=== PATIENT | female | born 1995 | race Caucasian/White ===

== ENCOUNTER 2020-10-10 18:01 | Emergency (ER) | payer OTHER ==
[~2020-10-10] VITALS: Ht 154.9 cm; Wt 81.4 kg
[2020-10-10 18:19] VITALS: TEMP 97.4
[2020-10-10 19:14] VITALS: BP 122/78; PULSE 84
== END 2020-10-10 19:13 | disposition home or self-care (01) ==
LOC: COL.ER 18:01
DX: S93.402A Sprain of unspecified ligament of left ankle, initial encounter (principal); X50.1XXA Overexertion from prolonged static or awkward postures, initial encounter

== ENCOUNTER 2022-03-18 16:00 | Outpatient (RCR) | payer BC, OTHER ==
[2022-03-13 16:29] VITALS: BP 104/67; PULSE 84; TEMP 99
[2022-03-16 17:19] VITALS: BP 115/67; PULSE 87; TEMP 99.1
[~2022-03-18] VITALS: Ht 154.9 cm; Wt 84.1 kg
[2022-03-18 16:00] VITALS: BP 120/70; PULSE 83; TEMP 98.6
[~2022-03-18 16:00] MED LIST: ONE-A-DAY PREN1 EAC1 PO; PROVERA 10MG10 MG PO; VALTREX 50500 MG/TAB PO
== END 2022-03-18 17:55 ==
LOC: EUO 16:00
DX: D50.9 Iron deficiency anemia, unspecified (principal)
CPT/HCPCS: J1756; J7050

== ENCOUNTER 2022-04-24 10:45 | Observation (INO) | payer BC, OTHER ==
[~2022-04-24] VITALS: Ht 172.7 cm; Wt 78.5 kg
[2022-04-24] VITALS (15 sets, daily range): BP systolic 96–134; BP diastolic 32–68; PULSE 80–106; TEMP 97.9–99.8
[~2022-04-24 10:45] MED LIST changes: +SPRINTEC 35 MCG1 TAB PO
[2022-04-24 11:48] LABS: BASO % 0.3 % (0.0-2.0); EOS % 0.6 % (0.0-4.0); GRAN # 4.6 K/mm3 (1.4-6.5); GRAN % 68.2 % (42.2-75.2); LYMPH # 1.6 K/mm3 (1.2-3.4); LYMPH % 23.8 % (20.0-51.0); MEAN CELL VOLUME 70 fl (80.0-100.0); MEAN CORPUSCULAR HGB CONC 27 g/dl (33.0-37.0); MEAN PLATELET VOLUME 10.5 fl (7.4-10.4); MONO # 0.4 K/mm3 (0.1-0.6); MONO % 6.5 % (1.7-9.3); PLATELET COUNT 301 K/mm3 (130-400); RED BLOOD COUNT 1.86 M/mm3 (4.10-5.30); REDCELL DISTRIBUTION WIDTH-CV 27.4 % (11.5-14.5)
[2022-04-24 11:52] LABS: HEMOGLOBIN 3.5 g/dl (12.5-16.0); MEAN CORPUSCULAR HEMOGLOBIN 19 pg (27-31)
[2022-04-24 11:56] LABS: ALBUMIN 3.1 gm/dL (3.5-5.0); BILIRUBIN,TOTAL 0.2 mg/dL (0.2-1.2); CALCIUM 8.6 mg/dL (8.4-10.2); CREATININE, serum 0.67 mg/dL (0.57-1.11); POTASSIUM 4.2 mmol/L (3.5-4.5); TOTAL PROTEIN 6.6 gm/dL (6.2-8.1)
--- NOTE | 2022-04-24 14:00 | NUR ---
PATIENT ARRIVED TO UNIT VIA W/C WITH ER STAFF. ASSISTED TO ROOM AND INTRODUCED SELF TO THIS NURSE. EDUCATED PATIENT THAT WANTED HER NPO INCLUDING WATER. PATIENT VERBALIZES UNDERSTANDING. IV TO LEFT AC AND WRIST BAND IN PLACE. PT AMBULATES TO RESTROOM AND BACK TO BED WITH OUT DIFFICULTY.
[2022-04-24 20:17] LABS: HEMATOCRIT 18.8 % (37.0-47.0); HEMOGLOBIN 5.4 g/dl (12.5-16.0)
[2022-04-25] VITALS (7 sets, daily range): BP systolic 95–127; BP diastolic 45–77; PULSE 73–96; TEMP 98.2–99.2
--- NOTE | 2022-04-25 06:00 | NUR ---
0535 - RN AT BEDSIDE FOR VITALS. PT REPORTS FEELING LIKE SHE IS HAVING A HARDER TIME CATCHING HER BREATH. O2 SAT INITIALLY 89%. RN HAD PT SIT UP, TAKE A FEW DEEP BREATHS, AND COUGH. COUGH PRODUCTIVE. PT REPORTS FEELING LIKE SHE IS ABLE TO BREATHE BETTER AFTER THIS. O2 SAT NOW 93%-94%. RN WILL CONTINUE TO MONITOR AND ASSESS. 0600 - RN AT BEDSIDE FOR COMPLETION OF 4TH UNIT OF PRBC. RN ASKED PT IF HER BREATHING FEELS BETTER OR WORSE. PT STATES THAT IT FEELS THE SAME IT DID EARLIER. RN PLACED PULSE OX ON PT. O2 SAT 92%. RN WILL CONTINUE TO MONITOR AND ASSESS.
[2022-04-25 07:39] LABS: HEMATOCRIT 29.9 % (37.0-47.0); HEMOGLOBIN 9.5 g/dl (12.5-16.0)
--- NOTE | 2022-04-25 10:29 | NUR ---
PT SITS UP ON SIDE OF BED, STATES THAT SHE IS UNABLE TO LAY DOWN, DUE TO THE PAIN IN HER CHEST. PT SAYS THE PAIN IS WORSE WHEN SHE IS UP TO THE BATHROOM, AND RATES IT 8/10, AND SAYS ITS ONLY IN HER LEFT UPPER CHEST O2 SATS 96-97% ON ROOM AIR. PT DENIES ANY NEEDS AT THIS TIME
--- NOTE | 2022-04-25 12:34 | NUR ---
Motorcycle Deliverer rounds: Patient and visitor accepted Motorcycle Deliverer visit for prayer. Motorcycle Deliverer prayed for Patient and upcoming chest x-ray.
--- NOTE | 2022-04-25 13:33 | NUR ---
1130 - PT REPORTS THAT CHEST DISCOMFORT IS GETTING WORSE, IT HURTS TO TAKE A DEEP BREATH OR LIE DOWN, SHE IS COUGHING, WHICH IS GIVING HER A HEADACHE. DR JAVIER NOTIFIED, SEE PHYSICIAN NOTIFICATION
--- NOTE | 2022-04-25 13:42 | NUR ---
2190 - PHONE CALL FROM DR JAVIER, CHEST XRAY RESULTS REPORTED , ORDER FOR 10MG LASIX NOW IVP
--- NOTE | 2022-04-25 13:43 | NUR ---
1315 - PT SITS UP ON SIDE OF BED, FEELING MUCH BETTER AFTER LASIX, VS WNL
--- NOTE | 2022-04-25 15:07 | NUR ---
1415 - PT REPORTS FEELING MUCH BETTER, NO PAIN IN UPPER CHEST, ABLE TO TAKE A DEEP BREATH WITHOUT PAIN 1420 - DR ROLES NOTIFIED OF PT STATUS, SEE PHYSICIAN NOTIFICATION 1435 - IV SITE TO LEFT AC DC'D, CATHETER INTACT, SITE WITHOUT REDNESS 1445 - DISCHARGE INSTRUCTIONS GIVEN TO PT AND , VERBALIZES GOOD UNDERSTANDING 1455 - DISMISSED PER W/C IN STABLE CONDITION WITH , ACCOMPANIED BY RN
== END 2022-04-25 14:55 | disposition home or self-care (01) ==
LOC: COL.ER 10:45 → OB 13:17
PROVIDERS: Nurse Practitioner; ADMIT Obstetrics & Gynecology
DX: N92.1 Excessive and frequent menstruation with irregular cycle (principal); D64.9 Anemia, unspecified; Z97.5 Presence of (intrauterine) contraceptive device
CPT/HCPCS: J1885; J1940; J2405; J7030; P9016

== ENCOUNTER 2023-07-05 12:26 | Outpatient (RCR) | payer BC, OTHER ==
[~2023-07-05] VITALS: Ht 172.7 cm; Wt 88.1 kg
[~2023-07-05 12:26] MED LIST changes: +IRON TABLETS325 MG PO; +LYSTEDA650 MG PO; +VITAMIN D31000 I1 PO; +VTAMINC250TA PO
[2023-07-05 13:48] VITALS: BP 124/49; PULSE 66; TEMP 98.4
[2023-07-05] MEDS ORDERED: COMPLETE MULTI1 TAB PO (13:59)
[2023-07-05] MEDS ORDERED: ESTARYLLA 35 MC1 TAB PO (14:00)
[2023-07-05] MEDS ORDERED: MOTRIN 800800 MG/TAB PO (14:00)
[2023-07-05 14:26] VITALS: BP 109/59; PULSE 71; TEMP 98.4
[2023-07-05 14:45] VITALS: BP 127/66; PULSE 73; TEMP 98.5
[2023-07-05 15:00] VITALS: BP 129/53; PULSE 80; TEMP 98.4
[2023-07-05 15:30] VITALS: BP 98/50; PULSE 79; TEMP 98.3
[2023-07-05 16:30] VITALS: BP 116/71; PULSE 79; TEMP 98.4
--- NOTE | 2023-07-05 16:30 | NUR ---
Pt tolerated transfusion without issue. She ate meal brought in by her . She has been steady on feet in room. Respirations remain even and unlabored, and she is free of complaints. Report given to SHIRLEY Barney who will continue to monitor pt during post tranfusion period prior to discharge. Pt denies needs at this time. Call light in reach.
== END 2023-07-05 17:02 | disposition home or self-care (01) ==
LOC: EUO 12:26
DX: D64.9 Anemia, unspecified (principal)
CPT/HCPCS: J7050; P9016